=== PATIENT | female | born 1940 | race Caucasian/White ===

== ENCOUNTER → 2018-12-13 | Outpatient (CLI) | payer OTHER | LOC: FLAB 16:23 | PROVIDERS: ATTEND Internal Medicine | DX: R05 Cough (principal); J98.4 Other disorders of lung ==

== ENCOUNTER → 2018-12-17 | Outpatient (CLI) | payer OTHER | LOC: FIMAGING 14:33 | PROVIDERS: ATTEND Internal Medicine | DX: R05 Cough (principal); J84.9 Interstitial pulmonary disease, unspecified; K80.20 Calculus of gallbladder without cholecystitis without obstruction ==